=== PATIENT | female | born 1970 | race Caucasian/White ===

== ENCOUNTER 2018-05-09 06:42 | Day surgery (SDC) | payer OTHER ==
[~2018-05-09 06:42] MED LIST: ANTIOXIDANT FO1 EACH PO; MULTI-DAY1 TAB PO; OMEGA 3 500 SO1 EACH PO; OSTERA TABLET1 EACH PO; TAMOXIFEN CITRA20 MG PO; [UNRECOGNIZED DRUG - OTHER] PO
== END 2018-05-09 17:50 | disposition home or self-care (01) ==
LOC: CIR.AMB 06:42
DX: D24.2 Benign neoplasm of left breast (principal)

== ENCOUNTER 2023-06-11 07:51 | Outpatient (CLI) | payer OTHER | END 2023-06-11 08:03 | disposition home or self-care (01) | LOC: NUCLEAR 07:51 | PROVIDERS: ATTEND Surgery | DX: C50.412 Malignant neoplasm of upper-outer quadrant of left female breast (principal) ==

== ENCOUNTER → 2023-07-12 | Day surgery (SDC) | payer OTHER ==
[~2023-07-12] VITALS: Ht 167.6 cm; Wt 78.5 kg
[~2023-07-12] MED LIST changes: +NP THYROID90 MG PO
== END | disposition home or self-care (01) ==
LOC: ADM 07-09 15:00 → CIR.AMB 06:52
PROVIDERS: ATTEND Surgery
DX: C49.3 Malignant neoplasm of connective and soft tissue of thorax (principal); N60.92 Unspecified benign mammary dysplasia of left breast; R59.0 Localized enlarged lymph nodes; Z20.822 Contact with and (suspected) exposure to COVID-19; I10 Essential (primary) hypertension; E11.9 Type 2 diabetes mellitus without complications; E04.1 Nontoxic single thyroid nodule; Z91.013 Allergy to seafood